=== PATIENT | male | born 1960 | race Caucasian/White ===

== ENCOUNTER → 2020-11-07 | Outpatient (CLI) | payer OTHER | LOC: KOH-I 11:00 | DX: Z12.2 Encounter for screening for malignant neoplasm of respiratory organs (principal); F17.210 Nicotine dependence, cigarettes, uncomplicated | CPT/HCPCS: G0297 ==

== ENCOUNTER → 2022-05-23 | Outpatient (CLI) | payer OTHER | LOC: RAD 12:47 | DX: J43.9 Emphysema, unspecified (principal) | CPT/HCPCS: 36600; 71046; 82803 ==

== ENCOUNTER → 2022-05-23 | Outpatient (CLI) | payer OTHER | LOC: HEART 5 10:24 | DX: J44.9 Chronic obstructive pulmonary disease, unspecified (principal) | CPT/HCPCS: 94060; 94729 ==

== ENCOUNTER 2022-07-28 10:12 | Emergency (ER) | payer OTHER ==
[2022-07-28 10:42] LABS: HEMOGLOBIN 14.9 gm/dl (14.0-17.5); RED BLOOD COUNT 4.78 M/UL (4.20-5.50); WHITE BLOOD COUNT 8.8 K/UL (4.5-11.0)
[2022-07-28 11:10] LABS: BUN/CREATININE RATIO 10 (0-10)
== END 2022-07-28 11:24 | disposition left against medical advice (07) ==
LOC: ER1 10:12
PROVIDERS: Student in an Organized Health Care Education/Training Program
DX: I48.91 Unspecified atrial fibrillation (principal); J44.9 Chronic obstructive pulmonary disease, unspecified; F17.200 Nicotine dependence, unspecified, uncomplicated; R06.2 Wheezing; Z51.81 Encounter for therapeutic drug level monitoring
CPT/HCPCS: 71045; 80053; 82550; 82553; 83880; 84484; 85025; 85379; 85610; 85730; 93005; 96374; 96375; 99283; J0696; J1100; J1650

== ENCOUNTER 2022-07-28 17:37 | Inpatient (IN) | payer MEDICARE, OTHER ==
[~2022-07-28] VITALS: Ht 170.2 cm; Wt 60.3 kg
[2022-07-28 18:33] LABS: HEMOGLOBIN 14.5 gm/dl (14.0-17.5); RED BLOOD COUNT 4.67 M/UL (4.20-5.50)
[2022-07-28 18:47] LABS: BUN/CREATININE RATIO 15 (0-10)
[2022-07-29 05:19] LABS: HEMOGLOBIN 13.4 gm/dl (14.0-17.5); RED BLOOD COUNT 4.36 M/UL (4.20-5.50); WHITE BLOOD COUNT 8.5 K/UL (4.5-11.0)
[2022-07-29 05:43] LABS: BUN/CREATININE RATIO 19 (0-10)
[2022-07-29 16:55] LABS: BUN/CREATININE RATIO 15 (0-10)
[2022-07-30 09:55] LABS: BUN/CREATININE RATIO 29 (0-10)
--- NOTE | 2022-07-30 18:23 | NUR ---
PATIENT FOUND SMOKING A CIGARETTE IN THE BATHROOM BY KIERA VARGAS RN, DANAE BLANKENSHIP RN AND DR. CORONA. [employer]ER NOTIFIED OF INCIDENT. PATIENT EDUCATED ON THE RISKS OF SMOKING NEAR OXYGEN AND THAT THE FACILITY IS A SMOKE FREE CAMPUS.
[2022-07-30 19:57] LABS: BUN/CREATININE RATIO 16 (0-10)
[2022-07-31 02:28] LABS: HEMOGLOBIN 13.3 gm/dl (14.0-17.5); RED BLOOD COUNT 4.38 M/UL (4.20-5.50); WHITE BLOOD COUNT 13.6 K/UL (4.5-11.0)
[2022-07-31 02:54] LABS: BUN/CREATININE RATIO 18 (0-10)
--- NOTE | 2022-07-31 07:55 | NUR ---
PT LEFT FLOOR TO GO SMOKE, DESPITE BEING WARNED OF COMPLICATIONS OF LEAVING, INCLUDING OR INJURY
[2022-07-31] MEDS ORDERED: TAB-A-VITE TA400 MC1 PO (10:25)
[2022-07-31] MEDS ORDERED: ELIQUIS 5 MG TAB5 MG PO (10:25)
[2022-07-31] MEDS ORDERED: VITAMIN B-1100 M1 PO (10:25)
[2022-07-31] MEDS ORDERED: NICOTINE PATCH1 EAC2 TOP (10:25)
[2022-07-31] MEDS ORDERED: MAG-OX 400 TAB400 MG PO (10:35)
[2022-07-31] MEDS ORDERED: ASPIRIN EC81 MG PO (10:35)
[2022-07-31] MEDS ORDERED: DILTIAZEM 24HR180 M1 PO (10:35)
== END 2022-07-31 11:53 | disposition home or self-care (01) | DRG 309 ==
LOC: ER1 17:37 → CCU 19:04 → PROG CARE 19:04 → CDU 19:04 → CCU 07-29 19:56 → PROG CARE 07-30 21:22
PROVIDERS: Internal Medicine; Internal Medicine Nephrology; Student in an Organized Health Care Education/Training Program; ADMIT Internal Medicine
PROC: B24BZZZ Ultrasonography of Heart with Aorta (ICD-10-PCS; 2022-07-28)
PROC: 5A2204Z Restoration of Cardiac Rhythm, Single (ICD-10-PCS; principal; 2022-07-30)
DX: I48.91 Unspecified atrial fibrillation (principal); E87.1 Hypo-osmolality and hyponatremia; J96.11 Chronic respiratory failure with hypoxia; J43.9 Emphysema, unspecified; F15.99 Other stimulant use, unspecified with unspecified stimulant-induced disorder; F10.10 Alcohol abuse, uncomplicated; K44.9 Diaphragmatic hernia without obstruction or gangrene; F17.210 Nicotine dependence, cigarettes, uncomplicated; R63.1 Polydipsia; I45.10 Unspecified right bundle-branch block; R26.81 Unsteadiness on feet; K21.9 Gastro-esophageal reflux disease without esophagitis; Z82.49 Family history of ischemic heart disease and other diseases of the circulatory system
CPT/HCPCS: 36415; 36600; 71045; 80048; 80053; 80307; 81001; 82436; 82533; 82550; 82553; 82803; 83735; 84133; 84295; 84300; 84439; 84443; 84484; 85025; 85027; 85379; 85610; 85730; 92960; 93005; 93312; 93320; 94640; 94664; 94760; 96372; 96374; 96375; 99285; J0360; J0461; J0696; J1650; J2250; J3010; J3411

== ENCOUNTER → 2022-07-28 | Outpatient (CLI) | payer OTHER ==
[~2022-07-28] MED LIST: ASPIRIN EC81 MG PO; DILTIAZEM 24HR180 M1 PO; ELIQUIS 5 MG TAB5 MG PO; MAG-OX 400 TAB400 MG PO; NICOTINE PATCH1 EAC2 TOP; TAB-A-VITE TA400 MC1 PO; VITAMIN B-1100 M1 PO
[2022-07-28 10:29] LABS: HEMOGLOBIN 14.9 gm/dl (14.0-17.5); RED BLOOD COUNT 4.83 M/UL (4.20-5.50); WHITE BLOOD COUNT 8.4 K/UL (4.5-11.0)
[2022-07-28 10:59] LABS: BUN/CREATININE RATIO 10 (0-10)
== END ==
LOC: ECHO 06-17 08:30
PROVIDERS: Internal Medicine Cardiovascular Disease
DX: I48.91 Unspecified atrial fibrillation (principal); I08.1 Rheumatic disorders of both mitral and tricuspid valves
CPT/HCPCS: ECHO; 36415; 80053; 80061; 83735; 84439; 84443; 85025; 93306